=== PATIENT | female | born 1990 | race African-American/Black ===

== ENCOUNTER 2021-07-15 16:29 | Emergency (ER) | payer SELFPAY ==
[~2021-07-15] VITALS: Ht 160 cm; Wt 63.3 kg
[2021-07-15 16:32] VITALS: BP 111/74
== END 2021-07-15 16:55 | disposition left against medical advice (07) ==
LOC: M ED 16:29
DX: Z53.21 Procedure and treatment not carried out due to patient leaving prior to being seen by health care provider (principal)

== ENCOUNTER → 2021-07-15 | Outpatient (REF) | payer OTHER, SELFPAY ==
[2021-07-15 21:07] LABS: RSV AMPLIFICATION NEGATIVE (NEGATIVE)
== END ==
LOC: M LAB REF 17:50
PROVIDERS: ATTEND Physician Assistant
DX: R53.81 Other malaise (principal)

== ENCOUNTER 2025-08-03 11:47 | Emergency (ER) | payer MEDICAID, OTHER, SELFPAY ==
[~2025-08-03] VITALS: Ht 162.6 cm; Wt 62.4 kg
[2025-08-03 12:38] LABS: BASO # 0.1 10^3/uL (0.0-0.2); BASO % 1.1 % (0.0-1.0); EOS # 0.8 10^3/uL (0.0-0.5); EOS % 8.1 % (0.0-3.0); LYMPH # 2.0 10^3/uL (1.5-5.0); LYMPH % 21.3 % (24.0-44.0); MONO # 0.8 10^3/uL (0.0-0.8); MONO % 8.8 % (2.0-8.0); NEUTROPHILS # 5.6 10^3/uL (1.5-8.5); NEUTROPHILS % 60.3 % (36.0-66.0); PLATELET COUNT, AUTOMATED 349 10^3/uL (150-450)
[2025-08-03 12:50] LABS: KETONE, URINE AUTO RFX NEGATIVE (NEGATIVE); NITRITE, URINE AUTO RFX NEGATIVE (NEGATIVE); RBC, URINE AUTO RFX 0 /HPF (0-3); SQUAM EPITHELIAL CELL UR AURFX 0 /HPF (0-6); WBC, URINE AUTO RFX 0 /HPF (0-3)
[2025-08-03 13:06] LABS: ALT/SGPT 14 U/L (7.0-40); AST/SGOT 16 U/L (<34); CALCIUM LEVEL 10.4 MG/DL (8.5-10.1); CARBON DIOXIDE LEVEL 27 MMOL/L (20-31); CHLORIDE LEVEL 98 MMOL/L (98-107); CREATININE FOR GFR 0.77 MG/DL (0.55-1.30); GLOMERULAR FILTRATION RATE > 90.0 (>60); POTASSIUM SERUM 4.0 MMOL/L (3.5-5.1); SODIUM LEVEL 136 MMOL/L (136-145)
[2025-08-03 13:18] LABS: HCG, SERUM QUALITATIVE NEGATIVE (NEGATIVE)
[2025-08-03 13:51] LABS: LEUKOCYTE ESTERASE UR AUTO RFX TRACE (NEGATIVE)
[2025-08-03 15:29] VITALS: BP 145/92; TEMP 96.9; O2SAT 97
[2025-08-03] MEDS: KETOROLAC 30 MG/ML 1 ML VIAL IV ONE (16:48)
[2025-08-03] MEDS: NS (Normal Saline) 0.9% 1,000 ML IV ONE (16:49)
== END 2025-08-03 17:51 | disposition home or self-care (01) ==
LOC: M ED 11:47 → EDBD 11:47 → M ED 17:51
DX: R10.9 Unspecified abdominal pain (principal); D44.12 Neoplasm of uncertain behavior of left adrenal gland; F17.200 Nicotine dependence, unspecified, uncomplicated; F19.10 Other psychoactive substance abuse, uncomplicated; K42.9 Umbilical hernia without obstruction or gangrene; Z88.0 Allergy status to penicillin
CPT/HCPCS: 74176; 80048; 80076; 81001; 83690; 84703; 85025; 87086; 96361; 96374; 99284; J1885